=== PATIENT | male | born 1950 | race Caucasian/White ===

== ENCOUNTER 2019-03-21 08:32 | Day surgery (SDC) | payer MEDICARE ==
[2019-03-21 11:20] VITALS: BMI 32.0
[2019-03-21] MEDS ORDERED: Lactated Ringer's 500 ML IV ONE (11:24)
[2019-03-21 11:45] VITALS: TEMP 97; O2SAT 98
[2019-03-21] MEDS ORDERED: Midazolam 2 MG/2 ML VIAL ONE (12:57)
[2019-03-21] MEDS ORDERED: Propofol 10 mg/ml Inj (20 ML) ONE (12:57)
[2019-03-21 13:48] VITALS: BP 107/65; PULSE 64; RESP 16
== END 2019-03-21 14:00 | disposition home or self-care (01) ==
LOC: H.ENDO 08:32
PROVIDERS: ATTEND Internal Medicine Gastroenterology
DX: Z12.11 Encounter for screening for malignant neoplasm of colon (principal); I10 Essential (primary) hypertension; D12.6 Benign neoplasm of colon, unspecified; K64.8 Other hemorrhoids; K57.30 Diverticulosis of large intestine without perforation or abscess without bleeding
CPT/HCPCS: 45381; 45385; 88305; J2001; J2250; J2704; J7120